=== PATIENT | female | born 1985 | race Caucasian/White ===

== ENCOUNTER 2018-09-28 15:57 | Inpatient (IN) | payer OTHER ==
[~2018-09-28] VITALS: Ht 157.5 cm; Wt 146.0 kg
[2018-09-28] MEDS ORDERED: PRENATABS RX T1 EACH PO (17:43)
[2018-09-28] MEDS ORDERED: TYLENOL EXTRA500 MG PO (17:44)
== END 2018-10-02 11:01 | DRG 833 ==
LOC: OB/GYN 15:57 → LDR 15:57 → OB/GYN 09-29 08:17
PROC: 4A1HXCZ Monitoring of Products of Conception, Cardiac Rate, External Approach (ICD-10-PCS; principal; 2018-09-28)
PROC: BT43ZZZ Ultrasonography of Bilateral Kidneys (ICD-10-PCS; 2018-09-28)
DX: O23.02 Infections of kidney in pregnancy, second trimester (principal); O26.892 Other specified pregnancy related conditions, second trimester; B96.29 Other Escherichia coli [E. coli] as the cause of diseases classified elsewhere; N20.0 Calculus of kidney; Z34.82 Encounter for supervision of other normal pregnancy, second trimester